=== PATIENT | female | born 1975 | race Caucasian/White ===

== ENCOUNTER 2018-12-10 08:11 | Observation (INO) | payer BC ==
[2018-12-10] VITALS (34 sets, daily range): BP systolic 140–189; BP diastolic 79–111; PULSE 81–104; RESP 16–30; Ht 167.6 cm; Wt 120.4 kg
[~2018-12-10] VITALS: Ht 167.6 cm; Wt 120.4 kg
[~2018-12-10 08:11] MED LIST: CLOP75TA27 PO; ERGO500013 PO; FER325 PO; LAMO100T PO; LEVO175T38 PO; LISI-313 PO; MEDR10TA9 PO; METF500T24 PO; QUET400T11 PO
[2018-12-10] MEDS ORDERED: SOD CHLORIDE 0.9% 1,000 ML IV SCH (10:00)
[2018-12-10] MEDS ORDERED: CEFAZOLIN 1 GM/50 ML (PMX) 50 ML IVPB ONE (10:00)
[2018-12-10] MEDS ORDERED: BUPIVACAINE 0.25% (MPF) 30 ML INJ ONE (10:57)
[2018-12-10] MEDS ORDERED: DIPHENHYDRAMINE 50 MG INJ IV PRN (11:00)
[2018-12-10] MEDS ORDERED: ONDANSETRON 4 MG INJ IV PRN ×3 (11:00→17:30)
[2018-12-10] MEDS ORDERED: FENTAnyl 50 MCG/ML VIAL IV PRN ×3 (11:00)
[2018-12-10] MEDS ORDERED: METOCLOPRAMIDE 10 MG INJ IV PRN (11:00)
[2018-12-10] MEDS ORDERED: HYDROmorphONE 1 MG/5 ML IV SYRINGE IV PRN ×3 (11:00)
[2018-12-10] MEDS ORDERED: ALBUTEROL 0.083% (NEB) 2.5 MG/3 ML AMP HHN PRN (11:00)
[2018-12-10] MEDS ORDERED: MEPERIDINE 25 MG INJ IV PRN (11:00)
[2018-12-10] MEDS ORDERED: FENTAnyl 50 MCG/ML VIAL ONE ×2 (11:16→12:30)
[2018-12-10] MEDS ORDERED: DESFLURANE 15 MIN ONE (11:16)
[2018-12-10] MEDS ORDERED: SUCCINYLCHOLINE CHLORIDE 100 MG/5 ML SYG IV ONE (11:42)
[2018-12-10] MEDS ORDERED: PROPOFOL 20 ML ONE (11:42)
[2018-12-10] MEDS ORDERED: CEFAZOLIN 1 GM INJ ONE (11:42)
[2018-12-10] MEDS ORDERED: SUGAMMADEX SODIUM 200 MG/2 ML VIAL IV ONE (11:42)
[2018-12-10] MEDS ORDERED: LIDOCAINE 100 MG SYRINGE ONE (11:42)
[2018-12-10] MEDS ORDERED: ROCURONIUM 50 MG INJ ONE (11:42)
[2018-12-10] MEDS ORDERED: HYDROCODONE/APAP (5/325) TAB PO PRN (13:00)
[2018-12-10] MEDS: CEFAZOLIN 2 GM/50 ML (PMX) 50 ML IVPB SCH ×2 (13:45→21:12)
[2018-12-10] MEDS: LACTATED RINGER'S 1,000 ML IV SCH (14:30)
[2018-12-10] MEDS ORDERED: hydrALAzine 20 MG INJ IV PRN ×3 (15:00→23:00)
[2018-12-10] MEDS: METOCLOPRAMIDE 10 MG INJ IV PRN (15:14)
[2018-12-10] MEDS: ACCU-CHEK XX SCH ×2 (15:28→21:00)
[2018-12-10] MEDS: morphine 2 MG INJ IV PRN (15:29)
[2018-12-10] MEDS: LISINOPRIL 10 MG TAB PO ONE ×2 (16:56→17:10)
[2018-12-10] MEDS ORDERED: ONDANSETRON 4 MG INJ IV STA (17:10)
[2018-12-10] MEDS ORDERED: hydrALAzine 20 MG INJ IV ONE (17:30)
[2018-12-10] MEDS: INSULIN ASPART [NOVOLOG] 3 ML PEN SC SCH (17:55)
[2018-12-10] MEDS: metFORMIN 500 MG TAB PO SCH (17:55)
[2018-12-10] MEDS ORDERED: DEXTROSE 50% 50 ML SYRINGE IV PRN ×2 (20:00)
[2018-12-10] MEDS ORDERED: GLUCOSE GEL 15 GRAM TUBE BUCCAL PRN (20:00)
[2018-12-10] MEDS ORDERED: ONDANSETRON INJ 8 MG in DEXTROSE 5% 50 ML IV PRN (20:00)
[2018-12-10] MEDS ORDERED: GLUCOSE GEL 15 GRAM TUBE PO PRN ×2 (20:00)
[2018-12-10] MEDS ORDERED: GLUCAGON 1 MG INJ IM PRN (20:00)
[2018-12-10] MEDS ORDERED: QUETIAPINE 100 MG TAB PO SCH (21:00)
[2018-12-11 00:16] VITALS: BP 146/79; PULSE 99; RESP 18
[2018-12-11] MEDS: LACTATED RINGER'S 1,000 ML IV SCH ×2 (02:00→03:56)
[2018-12-11] MEDS: METOCLOPRAMIDE 10 MG INJ IV PRN (03:56)
[2018-12-11] MEDS: morphine 2 MG INJ IV PRN (04:15)
[2018-12-11] MEDS: CEFAZOLIN 2 GM/50 ML (PMX) 50 ML IVPB SCH (04:17)
[2018-12-11] MEDS ORDERED: LEVOTHYROXINE 175 MCG TAB PO SCH (07:00)
[2018-12-11 07:29] VITALS: BP 133/77; PULSE 89; RESP 16
[2018-12-11] MEDS: ACCU-CHEK XX SCH ×2 (08:34→12:40)
[2018-12-11] MEDS: metFORMIN 500 MG TAB PO SCH (08:34)
[2018-12-11] MEDS: INSULIN ASPART [NOVOLOG] 3 ML PEN SC SCH ×2 (08:40→12:40)
[2018-12-11] MEDS ORDERED: LISINOPRIL 5 MG TAB PO SCH (09:00)
[2018-12-11] MEDS ORDERED: LAMOTRIGINE 100 MG TAB PO SCH (09:00)
[2018-12-11] MEDS ORDERED: LISINOPRIL 10 MG TAB PO SCH (09:00)
[2018-12-11 15:17] VITALS: BP 124/79; PULSE 78; RESP 20
[2018-12-11] MEDS ORDERED: POTASSIUM CHLORIDE 20 MEQ POWDER FOR ORAL SOLN PO ONE (15:30)
== END 2018-12-11 17:00 | disposition home or self-care (01) ==
LOC: SUR 08:11 → REC 12:56 → INTOOBSV 12:56 → EDSTATUS 13:30 → MS1 14:18
PROVIDERS: ADMIT Surgery; ATTEND Surgery
DX: C73 Malignant neoplasm of thyroid gland (principal); E11.9 Type 2 diabetes mellitus without complications; I10 Essential (primary) hypertension
CPT/HCPCS: 60240; 80053; 82310; 82962; 84703; 85025; 88307; J0360; J0690; J1200; J1815; J2001; J2270; J2405; J2765; J3010; J7030; J7120; Z7500; Z7512; Z7610; 99217; G0378